=== PATIENT | female | born 1945 | race Two or more races ===

== ENCOUNTER 2023-10-26 23:35 | Inpatient (IN) | payer MEDICARE, OTHER ==
[~2023-10-26] VITALS: Ht 162.6 cm; Wt 140.6 kg
[2023-10-27] VITALS (9 sets, daily range): BP systolic 116–121; BP diastolic 50–62; PULSE 68–78; RESP 14–24; TEMP 97.7–98.6; O2SAT 97–100
[2023-10-27] MEDS: DexAMETHasone SOD PHOS 10MG/1ML VIAL INJ IM ONE (00:05)
[2023-10-27 00:11] LABS: Basophils # (auto) 0 10 ^3/uL (0-0.2); Basophils % (auto) 0.2 % (0.0-2.0); Eosinophils # (auto) 0 10 ^3/uL (0-0.8); Eosinophils % (auto) 0.5 % (0.0-7.0); Hemoglobin 10.4 g/dL (12.2-16.2); Lymphocytes # (auto) 0.6 10 ^3/uL (0.4-5.4); Neutrophils # (auto) 6.8 10 ^3/uL (1.6-8.6); White Blood Cell 8.9 10^3/uL (4.4-10.8)
[2023-10-27 00:13] LABS: Hematocrit 33.3 % (36.0-46.0); Mean Corpuscular Hemoglobin 29.4 pg (28.0-32.0); Mean Corpuscular Hgb Conc. 31.1 g/dL (32.0-36.0); Mean Corpuscular Volume 94.3 fL (80.0-100.0); Monocytes # (auto) 1.5 10 ^3/uL (0-1.3); Monocytes % (auto) 16.5 % (0.0-12.0); Neutrophils % (auto) 75.8 % (37.0-80.0); Red Blood Cells 3.53 10^6/uL (4.0-5.20); Red Cell Distribution Width 15.9 % (11.8-14.3)
[2023-10-27 00:32] LABS: Alanine Aminotransferase 14 U/L (7-40); Albumin 3.8 g/dL (3.2-4.8); Alkaline Phosphatase 87 U/L (46-116); Anion Gap 5 (5-15); Aspartate Aminotransferase 17 U/L (13-40); BUN/Creatinine Ratio 12.4 (10.0-20.0); Blood Urea Nitrogen 18 mg/dL (9-23); Calcium 8.6 mg/dL (8.7-10.4); Carbon Dioxide 26 mmol/L (20-30); Chloride 104 mmol/L (98-107); Glucose 134 mg/dL (74-106); Lipase 22 U/L (12-53); Potassium 4.5 mmol/L (3.5-5.1); Sodium 135 mmol/L (136-145)
[2023-10-27 00:33] LABS: Bilirubin, Total 0.4 mg/dL (0.2-1.0); Total Protein 6.7 g/dL (5.7-8.2)
[2023-10-27] MEDS: IPRATROPIUM BROM 0.5 MG/2.5ML INH SOL NEB ONE (00:37)
[2023-10-27] MEDS: ALBUTEROL SULF 2.5 MG/0.5ML(0.5%) NEB SOLN NEB ONE (00:37)
[2023-10-27] MEDS: AZITHROMYCIN 500MG/ 250ML 250 ML IV ONE (02:20)
[2023-10-27] MEDS: ENOXAPARIN SOD 40 MG/0.4 ML SYRINGE SC ONE (02:35)
[2023-10-27 07:49] LABS: Urine Bacteria MANY /hpf (None Seen); Urine Blood 2+ /uL (Negative); Urine Budding Yeast OCCASIONAL /hpf (None Seen); Urine Clarity HAZY (Clear); Urine Color Yellow (Yellow); Urine Mucus FEW (None Seen); Urine Protein, UAD TRACE (Negative); Urine Specific Gravity 1.026 (1.001-1.035); Urine Urobilinogen Normal (Negative); Urine WBC 39 /hpf (0 - 5); Urine pH 5.5 (5.0-8.0)
[2023-10-27] MEDS ORDERED: DEXTROSE (50%) 50ML SYRG IV PRN ×2 (09:45→10:00)
[2023-10-27] MEDS ORDERED: ONDANSETRON HCL 4 MG/2 ML VIAL IV PRN ×2 (09:45→10:00)
[2023-10-27] MEDS ORDERED: DOCUSATE SOD 100 MG CAP PO PRN ×2 (09:45→10:00)
[2023-10-27] MEDS ORDERED: SODIUM CHLORIDE 0.9% 1,000 ML IV SCH (09:45)
[2023-10-27] MEDS ORDERED: ENOXAPARIN SOD 100 MG/1 ML SYRINGE SC SCH (10:00)
[2023-10-27] MEDS ORDERED: levoFLOXacin 500MG 100 ML IV SCH (10:00)
[2023-10-27 10:13] LABS: Base Excess 0.4 mmol/L (-2.0-2.0)
[2023-10-27 10:30] LABS: INR 1.05 (0.9-1.15)
[2023-10-27 11:23] LABS: Creatinine, Urine 91.51 mg/dL (30.0-125.0)
[2023-10-27] MEDS: InsuLIN REG 1unit/0.01ml Soln (100units/ml) SC SCH (11:30)
[2023-10-27] MEDS ORDERED: InsuLIN REG 1unit/0.01ml Soln (100units/ml) SC SCH (11:30)
[2023-10-27] MEDS: ACCU-CHEK COMFORT CURVE STRIP VI SCH (11:30)
[2023-10-27] MEDS ORDERED: ACCU-CHEK COMFORT CURVE STRIP VI SCH (11:30)
[2023-10-27] MEDS: ENOXAPARIN SOD 120 MG/0.8 ML SYRINGE SC ONE (12:16)
[2023-10-27] MEDS: SODIUM CHLORIDE 0.9% 1,000 ML IV SCH (12:17)
[2023-10-27 14:01] LABS: COVID19 ANTIGEN SOFIA FIA NEGATIVE (NEGATIVE)
[2023-10-27 14:02] LABS: Rapid Influenza A Negative (Negative); Rapid Influenza B Negative (Negative)
[2023-10-27] MEDS ORDERED: ATOR10TA52 PO (18:57)
[2023-10-27] MEDS ORDERED: LEVO25TA6 PO (18:57)
[2023-10-27] MEDS ORDERED: METO25TA93 PO (18:57)
[2023-10-27] MEDS ORDERED: OMEP-434 PO (19:03)
[2023-10-27] MEDS ORDERED: APIX5TAB PO (19:03)
[2023-10-27] MEDS ORDERED: GABA-1250 PO (19:04)
[2023-10-27] MEDS ORDERED: LEVO175C2 PO (19:05)
[2023-10-27] MEDS ORDERED: ATOR40TA52 PO (19:05)
[2023-10-27] MEDS ORDERED: METO1TAB9 PO (19:06)
[2023-10-27] MEDS: ENOXAPARIN SOD 150 MG/1 ML SYRINGE SC SCH (22:05)
[2023-10-28] VITALS (14 sets, daily range): BP systolic 87–122; BP diastolic 42–60; PULSE 74–107; RESP 17–23; TEMP 97.7–98.7; O2SAT 95–99
[2023-10-28] MEDS: ALBUTEROL SULF 2.5 MG/0.5ML(0.5%) NEB SOLN NEB PRN (02:26)
[2023-10-28 07:28] LABS: Hematocrit 29.8 % (36.0-46.0); Hemoglobin 9.6 g/dL (12.2-16.2); Mean Corpuscular Hemoglobin 29.5 pg (28.0-32.0); Mean Corpuscular Hgb Conc. 32.2 g/dL (32.0-36.0); Mean Corpuscular Volume 91.6 fL (80.0-100.0); Red Blood Cells 3.26 10^6/uL (4.0-5.20); Red Cell Distribution Width 15.6 % (11.8-14.3); White Blood Cell 7.8 10^3/uL (4.4-10.8)
[2023-10-28 07:37] LABS: Basophils % (manual) 0 (0.0-2.0); Blast Cells 0; Eosinophils % (manual) 0 (0-7); Myelocytes % 0; Promyelocytes % 0; Reactive Lymphocytes 0
[2023-10-28 07:38] LABS: Alanine Aminotransferase 15 U/L (7-40); Albumin 3.6 g/dL (3.2-4.8); Alkaline Phosphatase 68 U/L (46-116); Anion Gap 7 (5-15); Aspartate Aminotransferase 24 U/L (13-40); BUN/Creatinine Ratio 14.9 (10.0-20.0); Blood Urea Nitrogen 20 mg/dL (9-23); Calcium 8.5 mg/dL (8.7-10.4); Carbon Dioxide 26 mmol/L (20-30); Chloride 103 mmol/L (98-107); Glucose 97 mg/dL (74-106); Potassium 4.1 mmol/L (3.5-5.1); Sodium 136 mmol/L (136-145)
[2023-10-28 07:39] LABS: Bilirubin, Total 0.4 mg/dL (0.2-1.0); Total Protein 6.2 g/dL (5.7-8.2)
[2023-10-28] MEDS: levoFLOXacin 500MG 100 ML IV SCH (10:30)
[2023-10-28] MEDS: FUROSEMIDE 40 MG/4 ML VIAL IV ONE (10:44)
[2023-10-28 13:36] LABS: Band Neutrophils % (manual) 9; Lymphocytes % (manual) 12 (10.0-50.0); Metamyelocytes % 3; Monocytes % (manual) 24 (0-12); Platelet Estimate Adequate
[2023-10-28] MEDS: DOXYCYCLINE 100MG/250ML 250 ML IV SCH (14:56)
[2023-10-28] MEDS: ALBUTEROL SULF 2.5 MG/0.5ML(0.5%) NEB SOLN NEB SCH (18:57)
[2023-10-28] MEDS: IPRATROPIUM BROM 0.5 MG/2.5ML INH SOL NEB SCH (18:58)
[2023-10-29] VITALS (20 sets, daily range): BP systolic 102–129; BP diastolic 48–65; PULSE 82–121; RESP 14–22; TEMP 97.8–98.4; O2SAT 93–99
[2023-10-29] MEDS: IPRATROPIUM BROM 0.5 MG/2.5ML INH SOL NEB SCH (01:51)
[2023-10-29] MEDS: ALBUTEROL SULF 2.5 MG/0.5ML(0.5%) NEB SOLN NEB SCH (01:51)
[2023-10-29 06:56] LABS: Hematocrit 28.4 % (36.0-46.0); Hemoglobin 9.1 g/dL (12.2-16.2); Mean Corpuscular Volume 90.5 fL (80.0-100.0); Red Blood Cells 3.14 10^6/uL (4.0-5.20); Red Cell Distribution Width 15.3 % (11.8-14.3); White Blood Cell 7.8 10^3/uL (4.4-10.8)
[2023-10-29 07:08] LABS: Chloride 101 mmol/L (98-107); Potassium 3.6 mmol/L (3.5-5.1); Sodium 135 mmol/L (136-145)
[2023-10-29 07:09] LABS: Anion Gap 8 (5-15); Calcium 8.2 mg/dL (8.7-10.4); Carbon Dioxide 26 mmol/L (20-30)
[2023-10-29 07:14] LABS: BUN/Creatinine Ratio 14.5 (10.0-20.0); Blood Urea Nitrogen 20 mg/dL (9-23); Glucose 106 mg/dL (74-106)
[2023-10-29 08:00] LABS: Basophils % (manual) 0 (0.0-2.0); Blast Cells 0; Eosinophils % (manual) 0 (0-7); Promyelocytes % 0; Reactive Lymphocytes 0
[2023-10-29] MEDS: cefTRIAXone 1GM/50ML D5W 50 ML IV SCH (08:57)
[2023-10-29] MEDS: PANTOPRAZOLE 40 MG TAB PO SCH (09:59)
[2023-10-29] MEDS: ENOXAPARIN SOD 40 MG/0.4 ML SYRINGE SC SCH (09:59)
[2023-10-29] MEDS: FUROSEMIDE 40 MG/4 ML VIAL IV SCH (10:00)
[2023-10-29] MEDS ORDERED: AZITHROMYCIN 500MG/ 250ML 250 ML IV SCH (10:00)
[2023-10-29 14:36] LABS: Band Neutrophils % (manual) 9; Lymphocytes % (manual) 10 (10.0-50.0); Metamyelocytes % 1; Myelocytes % 2
[2023-10-29 14:38] LABS: Monocytes % (manual) 14 (0-12); Platelet Estimate Adequate
[2023-10-30] VITALS (20 sets, daily range): BP systolic 94–127; BP diastolic 50–66; PULSE 80–120; RESP 2–24; TEMP 97.9–99.3; O2SAT 92–99
[2023-10-30] MEDS: FUROSEMIDE 20 MG/2 ML VIAL IV SCH (09:14)
[2023-10-30] MEDS: ACETYLCYSTEINE 10 %(100MG/ML) SOL 4ML IN SCH (14:43)
[2023-10-31] VITALS (17 sets, daily range): BP systolic 101–144; BP diastolic 48–69; PULSE 64–104; RESP 16–21; TEMP 97.8–98.4; O2SAT 91–100
[2023-10-31 06:47] LABS: Alanine Aminotransferase 17 U/L (7-40); Albumin 3.1 g/dL (3.2-4.8); Alkaline Phosphatase 52 U/L (46-116); Anion Gap 10 (5-15); Aspartate Aminotransferase 27 U/L (13-40); BUN/Creatinine Ratio 9.9 (10.0-20.0); Blood Urea Nitrogen 12 mg/dL (9-23); Carbon Dioxide 27 mmol/L (20-30); Chloride 98 mmol/L (98-107); Glucose 98 mg/dL (74-106); Hematocrit 29.1 % (36.0-46.0); Hemoglobin 9.2 g/dL (12.2-16.2); Mean Corpuscular Hemoglobin 28.9 pg (28.0-32.0); Mean Corpuscular Hgb Conc. 31.8 g/dL (32.0-36.0); Mean Corpuscular Volume 90.9 fL (80.0-100.0); Potassium 3.1 mmol/L (3.5-5.1); Red Cell Distribution Width 15.6 % (11.8-14.3); Sodium 135 mmol/L (136-145); White Blood Cell 11.1 10^3/uL (4.4-10.8)
[2023-10-31 06:48] LABS: Bilirubin, Total 0.4 mg/dL (0.2-1.0); Total Protein 5.6 g/dL (5.7-8.2)
[2023-10-31 07:21] LABS: Basophils % (manual) 0 (0.0-2.0); Blast Cells 0; Eosinophils % (manual) 0 (0-7); Promyelocytes % 0; Reactive Lymphocytes 0
[2023-10-31 09:36] LABS: Band Neutrophils % (manual) 4; Lymphocytes % (manual) 10 (10.0-50.0); Metamyelocytes % 1; Monocytes % (manual) 8 (0-12); Myelocytes % 1; Platelet Estimate Adequate
[2023-10-31] MEDS: POTASSIUM CHLORIDE 40 MEQ, LIDOCAINE 1% (LOCAL ANESTH.) 4 ML in SODIUM CHL 0.9% 250 ML IV ONE (14:25)
[2023-11-01] VITALS (19 sets, daily range): BP systolic 118–134; BP diastolic 52–67; PULSE 80–95; RESP 16–22; TEMP 97.9–98.3; O2SAT 86–99
[2023-11-01 06:53] LABS: Anion Gap 9 (5-15); Carbon Dioxide 28 mmol/L (20-30); Chloride 99 mmol/L (98-107); Potassium 3.2 mmol/L (3.5-5.1); Sodium 136 mmol/L (136-145)
[2023-11-01 06:59] LABS: BUN/Creatinine Ratio 8.1 (10.0-20.0); Blood Urea Nitrogen 10 mg/dL (9-23); Glucose 103 mg/dL (74-106)
[2023-11-01 07:10] LABS: Hematocrit 29.4 % (36.0-46.0); Hemoglobin 9.3 g/dL (12.2-16.2); Mean Corpuscular Hemoglobin 28.5 pg (28.0-32.0); Mean Corpuscular Hgb Conc. 31.6 g/dL (32.0-36.0); Mean Corpuscular Volume 90.2 fL (80.0-100.0); Red Blood Cells 3.26 10^6/uL (4.0-5.20); Red Cell Distribution Width 15.5 % (11.8-14.3); White Blood Cell 11.6 10^3/uL (4.4-10.8)
[2023-11-01 07:15] LABS: Basophils % (manual) 0 (0.0-2.0); Blast Cells 0; Eosinophils % (manual) 0 (0-7); Promyelocytes % 0; Reactive Lymphocytes 0
[2023-11-01 08:28] LABS: Band Neutrophils % (manual) 2; Lymphocytes % (manual) 7 (10.0-50.0); Metamyelocytes % 3; Monocytes % (manual) 10 (0-12); Myelocytes % 2
[2023-11-01 08:31] LABS: Platelet Estimate Adequate
[2023-11-01 08:32] LABS: RBC Morphology Normal
[2023-11-02] VITALS (20 sets, daily range): BP systolic 118–146; BP diastolic 50–76; PULSE 64–102; RESP 16–20; TEMP 97.7–98.6; O2SAT 93–100
[2023-11-02 05:50] LABS: Hematocrit 26.6 % (36.0-46.0); Hemoglobin 8.8 g/dL (12.2-16.2); Mean Corpuscular Hemoglobin 29.8 pg (28.0-32.0); Mean Corpuscular Hgb Conc. 33.1 g/dL (32.0-36.0); Mean Corpuscular Volume 89.8 fL (80.0-100.0); Red Blood Cells 2.97 10^6/uL (4.0-5.20); Red Cell Distribution Width 15.3 % (11.8-14.3); White Blood Cell 9.1 10^3/uL (4.4-10.8)
[2023-11-02 05:54] LABS: Anion Gap 7 (5-15); Carbon Dioxide 31 mmol/L (20-30); Chloride 100 mmol/L (98-107); Potassium 3.3 mmol/L (3.5-5.1); Sodium 138 mmol/L (136-145)
[2023-11-02 05:55] LABS: Calcium 8.1 mg/dL (8.5-10.1)
[2023-11-02 05:57] LABS: Basophils % (manual) 0 (0.0-2.0); Eosinophils % (manual) 0 (0-7); Promyelocytes % 0; Reactive Lymphocytes 0
[2023-11-02 06:00] LABS: BUN/Creatinine Ratio 7.4 (10.0-20.0); Blood Urea Nitrogen 9 mg/dL (9-23); Glucose 91 mg/dL (74-106)
[2023-11-02 07:37] LABS: Band Neutrophils % (manual) 2; Blast Cells 1; Lymphocytes % (manual) 14 (10.0-50.0); Metamyelocytes % 1; Monocytes % (manual) 12 (0-12); Myelocytes % 2; Platelet Estimate Adequate
[2023-11-02 07:38] LABS: Stomatocytes Few
[2023-11-03] VITALS (19 sets, daily range): BP systolic 102–158; BP diastolic 48–68; PULSE 75–90; RESP 14–20; TEMP 97.3–98.1; O2SAT 93–100
[2023-11-03 12:01] LABS: Chloride 97 mmol/L (98-107); Potassium 3.2 mmol/L (3.5-5.1); Sodium 134 mmol/L (136-145)
[2023-11-03 12:02] LABS: Anion Gap 7 (5-15); Carbon Dioxide 30 mmol/L (20-30)
[2023-11-03 12:03] LABS: Calcium 8.3 mg/dL (8.7-10.4)
[2023-11-03 12:07] LABS: Glucose 105 mg/dL (74-106)
[2023-11-03 12:08] LABS: BUN/Creatinine Ratio 6.3 (10.0-20.0); Blood Urea Nitrogen 8 mg/dL (9-23); Magnesium 1.3 mg/dL (1.6-2.6)
[2023-11-04] VITALS (11 sets, daily range): BP systolic 98–136; BP diastolic 51–70; PULSE 78–86; RESP 16–20; TEMP 36.7; O2SAT 94–100
[2023-11-04] MEDS ORDERED: IPRATROPIUM BROM 0.5 MG/2.5ML INH SOL NEB PRN (08:45)
[2023-11-04] MEDS ORDERED: ALBUTEROL SULF 2.5 MG/0.5ML(0.5%) NEB SOLN NEB PRN (08:45)
[2023-11-04] MEDS ORDERED: methylPREDNISolone SOD SUCC 125 MG/2 ML VL IV SCH (14:00)
== END 2023-11-04 13:50 | DRG 177 ==
LOC: ER 23:35 → EDBD 23:35 → TELE 10-27 09:42 → ER 10-27 09:50 → TELE-WESTW 10-27 09:50 → WEST WING 10-31 18:49
PROVIDERS: ADMIT Nurse Practitioner Family; ATTEND Family Medicine
DX: J15.69 Pneumonia due to other Gram-negative bacteria (principal); I50.33 Acute on chronic diastolic (congestive) heart failure; J96.01 Acute respiratory failure with hypoxia; I42.9 Cardiomyopathy, unspecified; N30.00 Acute cystitis without hematuria; N17.9 Acute kidney failure, unspecified; I13.0 Hypertensive heart and chronic kidney disease with heart failure and stage 1 through stage 4 chronic kidney disease, or unspecified chronic kidney disease; J98.11 Atelectasis; Z68.43 Body mass index [BMI] 50.0-59.9, adult; J15.9 Unspecified bacterial pneumonia; Z20.822 Contact with and (suspected) exposure to COVID-19; I48.91 Unspecified atrial fibrillation; E11.22 Type 2 diabetes mellitus with diabetic chronic kidney disease; N18.32 Chronic kidney disease, stage 3b; D64.9 Anemia, unspecified; E11.65 Type 2 diabetes mellitus with hyperglycemia; E66.01 Morbid (severe) obesity due to excess calories; Z95.0 Presence of cardiac pacemaker; Z88.6 Allergy status to analgesic agent
CPT/HCPCS: 36415; 36600; 70450; 71045; 71250; 80048; 80053; 81001; 82570; 82805; 82962; 83036; 83605; 83690; 83735; 83880; 84300; 84484; 85007; 85025; 85027; 85379; 85610; 87070; 87086; 87205; 87426; 87804; 93005; 93306; 93970; 94640; 97110; 97163; 97530; G0378; J1100; J1956; J2001; J3490